=== PATIENT | female | born 2000 | race Caucasian/White ===

== ENCOUNTER 2025-04-17 09:12 | Emergency (ER) | payer BC ==
[~2025-04-17] VITALS: Ht 157.5 cm; Wt 80.4 kg
[2025-04-17] MEDS ORDERED: OMEP40CA4 PO (09:22)
[2025-04-17 10:01] LABS: BASO # 0.0 10^3/uL (0.0-0.2); BASO % 0.3 % (0.0-1.0); EOS # 0.0 10^3/uL (0.0-0.5); EOS % 0.2 % (0.0-3.0); LYMPH # 1.1 10^3/uL (1.5-5.0); LYMPH % 12.0 % (24.0-44.0); MONO # 0.5 10^3/uL (0.0-0.8); MONO % 5.5 % (2.0-8.0); NEUTROPHILS # 7.2 10^3/uL (1.5-8.5); NEUTROPHILS % 81.8 % (36.0-66.0); PLATELET COUNT, AUTOMATED 211 10^3/uL (150-450)
[2025-04-17 10:24] LABS: ALT/SGPT 67 U/L (7.0-40); AST/SGOT 90 U/L (<34); CALCIUM LEVEL 9.3 MG/DL (8.5-10.1); CARBON DIOXIDE LEVEL 25 MMOL/L (20-31); CHLORIDE LEVEL 106 MMOL/L (98-107); CREATININE FOR GFR 0.51 MG/DL (0.55-1.30); GLOMERULAR FILTRATION RATE > 90.0 (>60); POTASSIUM SERUM 4.7 MMOL/L (3.5-5.1); SODIUM LEVEL 142 MMOL/L (136-145)
[2025-04-17 11:19] LABS: HCG, SERUM QUALITATIVE NEGATIVE (NEGATIVE)
[2025-04-17 13:09] VITALS: BP 138/78; TEMP 98; O2SAT 100
[2025-04-17] MEDS ORDERED: KETO-204 PO (13:15)
== END 2025-04-17 13:35 | disposition home or self-care (01) ==
LOC: M ED 09:12
DX: K80.20 Calculus of gallbladder without cholecystitis without obstruction (principal); Z79.899 Other long term (current) drug therapy

== ENCOUNTER 2025-04-22 09:31 | Emergency (ER) | payer BC ==
[~2025-04-22] VITALS: Ht 157.5 cm; Wt 79.9 kg
[~2025-04-22 09:31] MED LIST: KETO-204 PO; OMEP40CA4 PO
[2025-04-22] MEDS ORDERED: OMEP-173 PO (09:57)
[2025-04-22] MEDS ORDERED: KETO-204 PO (11:23)
[2025-04-22] MEDS ORDERED: HOME MED LIST COMPLETE! XX SCH (11:25)
[2025-04-22 12:02] LABS: ALT/SGPT 519 U/L (7.0-40); AST/SGOT 189 U/L (<34); CALCIUM LEVEL 9.6 MG/DL (8.5-10.1); CARBON DIOXIDE LEVEL 24 MMOL/L (20-31); CHLORIDE LEVEL 108 MMOL/L (98-107); CREATININE FOR GFR 0.55 MG/DL (0.55-1.30); GLOMERULAR FILTRATION RATE > 90.0 (>60); POTASSIUM SERUM 4.9 MMOL/L (3.5-5.1); SODIUM LEVEL 145 MMOL/L (136-145)
[2025-04-22 12:22] LABS: BASO # 0.0 10^3/uL (0.0-0.2); BASO % 0.2 % (0.0-1.0); EOS # 0.0 10^3/uL (0.0-0.5); EOS % 0.0 % (0.0-3.0); LYMPH # 0.6 10^3/uL (1.5-5.0); LYMPH % 4.4 % (24.0-44.0); MONO # 0.9 10^3/uL (0.0-0.8); MONO % 6.1 % (2.0-8.0); NEUTROPHILS # 12.6 10^3/uL (1.5-8.5); NEUTROPHILS % 88.9 % (36.0-66.0); PLATELET COUNT, AUTOMATED 253 10^3/uL (150-450)
[2025-04-22 12:41] LABS: HCG, SERUM QUALITATIVE NEGATIVE (NEGATIVE)
[2025-04-22] MEDS ORDERED: ISOVUE-370 76% 100 ML VIAL As Ordered ONE (13:00)
[2025-04-22] MEDS: PANTOPRAZOLE 40MG VIAL IV ONE (13:18)
[2025-04-22] MEDS: ONDANSETRON 4MG 2ML VIAL IV ONE (13:18)
[2025-04-22] MEDS: KETOROLAC 30 MG/ML 1 ML VIAL IV ONE (13:18)
[2025-04-22] MEDS: MORPHINE 4 MG/ML 1 ML VIAL IV ONE (15:01)
[2025-04-22] MEDS: PIPERACILLIN/TAZOBACTAM SOD 3.375 GM in DEXTROSE 5% (D5W) ADV/MINI-BAG 50 ML IV ONE (16:43)
[2025-04-22] MEDS: MORPHINE 2 MG/ML 1 ML VIAL IV PRN (19:52)
[2025-04-22 22:00] VITALS: TEMP 99.6
[2025-04-22 22:15] VITALS: BP 127/74; O2SAT 98
== END 2025-04-22 22:29 | disposition short-term general hospital (02) ==
LOC: EDBD 09:31 → M ED 09:31
DX: K83.1 Obstruction of bile duct (principal); K85.90 Acute pancreatitis without necrosis or infection, unspecified; Z79.2 Long term (current) use of antibiotics; Z79.899 Other long term (current) drug therapy
CPT/HCPCS: 74177; 74181; 76705; 80048; 80076; 83690; 84703; 85025; 93041; 96374; 96375; 96376; 99285; J1885; J2405; J2470; J2543; Q9967